=== PATIENT | female | born 1975 | race Hispanic/Latino ===

== ENCOUNTER → 2019-07-15 | Day surgery (SDC) | payer OTHER ==
[2019-07-12 13:24] LABS: BASOPHILS % 0.4 % (0.0-1.0); EOSINOPHILS % 0.4 % (0.0-6.0); HEMATOCRIT 45.8 % (34.2-44.1); HEMOGLOBIN 15.6 g/dL (12.0-16.0); LYMPHOCYTES # (AUTO) 1.9 (1.0-3.2); LYMPHOCYTES % 26.4 % (18.0-39.1); MEAN CORPUSCULAR HEMOGLOBIN 30.1 pg (28-32); MEAN CORPUSCULAR HGB CONC 34.1 g/dL (31-35); MEAN CORPUSCULAR VOLUME 88.4 fL (81-99); MONOCYTES # (AUTO) 0.4 (0.2-0.8); NEUTROPHILS # (AUTO) 4.9 (2.1-6.9); NEUTROPHILS % 67.5 % (38.7-80.0); PLATELET COUNT 301 x10e3/uL (140-360); RED BLOOD COUNT 5.18 x10e6/uL (3.6-5.1); RED CELL DISTRIBUTION WIDTH 11.8 % (11.7-14.4)
[2019-07-12 13:28] LABS: INR 0.95; PROTHROMBIN TIME 13.2 seconds (11.9-14.5)
[2019-07-12 13:29] LABS: PARTIAL THROMBOPLASTIN TIME 34.3 seconds (23.8-35.5)
[2019-07-12 13:34] LABS: ALANINE AMINOTRANSFERASE 16 IU/L (0-55); ALBUMIN 4.2 g/dL (3.5-5.0); ALBUMIN/GLOBULIN RATIO 1.1 (0.8-2.0); ALKALINE PHOSPHATASE 81 IU/L (40-150); ANION GAP 13.6 mmol/L (8-16); BLOOD UREA NITROGEN 10 mg/dL (7-26); BUN/CREATININE RATIO 15 (6-25); CALCIUM 10.1 mg/dL (8.4-10.2); CARBON DIOXIDE 26 mmol/L (22-29); CHLORIDE 101 mmol/L (98-107); CREATININE, SERUM 0.68 mg/dL (0.57-1.11); EST GLOMERULAR FILTRATION RATE > 60 ML/MIN (60-); GLUCOSE 90 mg/dL (74-118); POTASSIUM 3.6 mmol/L (3.5-5.1); SODIUM 137 mmol/L (136-145)
[~2019-07-15] MED LIST: ACETAMINOPHEN 1000 MG/100 ML 100 ML IV ONE; ACETAMINOPHEN 1000 MG/100 ML IV ONE; BACITRACIN 50,000 UNIT VIAL ONE; CEFAZOLIN SOD 1 GM/NS 50ML 50 ML IV ONE; DEXAMETHASONE SOD PHOS INJ 4 MG/ML VIAL ONE; FAMOTIDINE 20 MG/2 ML VIAL IV ONE; FENTANYL CITRATE/PF 100MCG/2 ML INJ ONE; GLYCOPYRROLATE INJ 1MG/ 5 ML SYR ONE; LIDOCAINE HCL 2% LOCAL INJ 5 ML SDV VIAL INJ ONE; METOCLOPRAMIDE HCL 10 MG/2ML VIAL ONE; MIDAZOLAM HCL 2 MG/2 ML VIAL ONE; NEOSTIGMINE 5 MG/5ML SYR ONE; ONDANSETRON HCL INJ 2MG/ML 2ML 2 MG/ML VIAL ONE; PROPOFOL IV EMULSION 10 MG/ML 20 ML VIAL ONE; ROCURONIUM BROMIDE 10 MG/ML 5ML VIAL ONE; SCOPOLAMINE 1.5 MG PATCH ONE; SEVOFLURANE INHAL SOLN 250 ML PEN BTL ONE; SODIUM CHLORIDE 0.9% 50ML 50 ML ONE
--- OUTSIDE RECORDS SUMMARY | 2019-07-15 06:17 | XMS REPORT ---
Author Author [facility] Address Unknown Phone Unavailable Care Team Providers Care Train Caller Name Role Phone Unavailable Unavailable Problems This patient has no known problems. Allergies, Adverse Reactions, Alerts This patient has no known allergies or adverse reactions. Medications This patient has no known medications. Results Test Description Test Time Test Comments Text Results Atomic Results Result Comments DIAG MAMM BILATERAL CAD DIGITAL W/AUGMENTATION 2019-04-07 15:12:49 - DIAG MAMM BILATERAL CAD DIGITAL W/AUGMENTATIONBILATERAL DIGITAL DIAGNOSTIC MAMMOGRAM WITH CAD WITH AUGMENTATION: 04/07/2019CLINICAL: Previous breast cancer. Current mammographic images were evaluated by either a [employer] M-Vu or a [employer] ImageChecker CAD (computer aided detection system). Comparison is made to exams dated 05/06/2017 mammogram, 09/21/2015 mammogram, and 08/27/2013 mammogram - [facility]. Bilateral mastectomy changes are noted.There are post operative findings in the right breast. Bilateral retropectoral silicone breast implants are appreciated. No suspicious mass, architectural distortion, malignant type calcification, or lymph node abnormality detected. Breast architecture is stable compared to prior exams.INCOMPLETE ASSESSMENT: ADDITIONAL IMAGING EVALUATION RECOMMENDEDNo mammographic evidence of malignancy.Same day bilateral whole breast complete ultrasound was also performed. Please see report.- BREAST ULTRASOUND BILATERALULTRASOUND OF BOTH BREASTS AND BOTH AXILLA: 04/07/2019Comparison is made to exams dated 05/06/2017 mammogram, 09/21/2015 mammogram, and 08/27/2013 mammogram - [facility]. Color flow and real-time ultrasound of both breasts and both axilla were performed. Tse scale images of the real-time examination were reviewed. No abnormalities were seen sonographically in either breast or axilla. IMPRESSION: BENIGN No sonog raphic evidence of malignancy. Resume annual screening mammography in one year. The above findings and recommendations were discussed with the patient at the time of the examination.Rober Crum MD hs/:04/07/2019 15:12:49 Entry: [facility] 04/08/2019 11:41:07Attending Technologist: Jihan DEL ANGEL, [facility]aging Technologist: Rody DEL ANGEL, [facility] sent: BIRADS 1-2 Combo FU Letter Mammogram BI-RADS: 0 Indeterminate Ultrasound BI-RADS: 2 Benign BREAST ULTRASOUND BILATERAL 2019-04-07 15:12:49 - DIAG MAMM BILATERAL CAD DIGITAL W/AUGMENTATIONBILATERAL DIGITAL DIAGNOSTIC MAMMOGRAM WITH CAD WITH AUGMENTATION: 04/07/2019CLINICAL: Previous breast cancer. Current mammographic images were evaluated by either a [employer] M-Vu or a [employer] CAD (computer aided detection system). Comparison is made to exams dated 05/06/2017 mammogram, 09/21/2015 mammogram, and [facility] Bilateral mastectomy changes are noted.There are post operative findings in the right breast. Bilateral retropectoral silicone breast implants are appreciated. No suspicious mass, architectural distortion, malignant type calcification, or lymph node abnormality detected. Breast architecture is stable compared to prior exams.INCOMPLETE ASSESSMENT: ADDITIONAL IMAGING EVALUATION RECOMMENDEDNo mammographic evidence of malignancy.Same day bilateral whole breast complete ultrasound was also performed. Please see report.- BREAST ULTRASOUND BILATERALULTRASOUND OF BOTH BREASTS AND BOTH AXILLA: 04/07/2019Comparison is made to exams dated 05/06/2017 mammogram, 09/21/2015 mammogram, and 08/27/2013 [facility]. Color flow and real-time ultrasound of both breasts and both axilla were performed. Tse scale images of the real-time examination were reviewed. No abnormalities were seen sonographically in either breast or axilla. IMPRESSION: BENIGN No sonog raphic evidence of malignancy. Resume annual screening mammography in one year. The above findings and recommendations were discussed with the patient at the time of the examination.Rober Crum MD hs/:04/07/2019 15:12:49 Entry: [facility] 04/08/2019 11:41:07Attending Technologist: Jihan DEL ANGEL, [facility] Technologist: Rody DEL ANGEL, [facility] sent: BIRADS 1-2 Combo FU Letter Mammogram BI-RADS: 0 Indeterminate Ultrasound BI-RADS: 2 Benign
[2019-07-15 11:55] VITALS: BP 119/72
--- NOTE | 2019-07-26 05:02 | Operative Report ---
DATE OF PROCEDURE: 07/15/2019 SURGEON: Bárbara Rosa MD PREOPERATIVE DIAGNOSES: 1. History of right breast cancer. 2. Acquired absence of bilateral breasts. 3. Old silicone gel breast implants. POSTOPERATIVE DIAGNOSES: 1. History of right breast cancer. 2. Acquired absence of bilateral breasts. 3. Old silicone gel breast implants. PROCEDURES PERFORMED: 1. Removal of bilateral old intact silicone gel breast implants, submuscular. 2. Bilateral breast capsulotomies. 3. Revision of bilateral breast reconstruction. 4. Placement of bilateral cohesive silicone gel breast implants, Ultra High Profile 510 mL Sientra in reconstruction. SN number on the left [id number] and SN number on the right [id number]. Both were Smooth Round Xtra High Profile Sientra implants. ANESTHESIA: General endotracheal. INDICATIONS FOR SURGERY: This is a 44-year-old female, who approximately 10 years ago underwent bilateral mastectomies and reconstruction with silicone gel breast implants. The patient is currently presenting for removal of bilateral old intact silicone gel breast implants, bilateral breast capsulotomies, revision of bilateral breast reconstruction and placement of bilateral new cohesive silicone gel breast implants and reconstruction. Risks, alternatives, and possible complications of the above procedure were explained to the patient. These include, but are not limited to bleeding, infection, scarring, skin flap necrosis, capsular contracture, breast asymmetry, exposure of failure of cohesive silicone gel breast implants, wound dehiscence, unsatisfactory aesthetic result, and possible need for further surgery. The patient had an opportunity to ask questions and have her questions answered and agreed to proceed with the proposed procedure. PROCEDURE IN DETAIL: The patient was marked in the preoperative holding area. She was then taken to the operating room and placed supine on the operating table. After adequate general anesthesia, the patient's bilateral breasts were prepped and draped in the usual surgical fashion. An incision was made along the previous mastectomy incision with #15 blade. Tissue was dissected down to breast capsule with the help of the Bovie. The breast pocket was entered and the old silicone gel breast implants were removed. They were high profile 400 mL implants. The breast pockets were then irrigated with normal saline with antibiotic solution. Extensive medial and superior capsulotomy as well as lateral and inferior capsulotomies were performed with the help of the Bovemanuel, [place], and Alpesh retractor. The capsulotomies were performed on both sides. Both pockets were irrigated with normal saline with antibiotic solution and checked for hemostasis. They were also checked for symmetry. Revision of bilateral breast reconstruction was then performed by excising the previous scar tissue along the mastectomy incision and releasing the scar contracture along the inferior portion of lower lateral breasts on both sides. After their revision of the bilateral breast reconstruction, the new cohesive silicone gel implants were placed in each pocket. They were Sientra Ultra High Profile 510 mL implants. After placing the implants in the breast pockets, the patient was placed in the sitting position and the 2 breasts were checked for symmetry. They appeared to be symmetric. The breast pocket was closed with 2 layers of interrupted 3-0 Vicryl suture and a running subcuticular 3-0 Monoderm Quill suture. At the end of the case, both breasts appeared to be symmetric. All skin flaps were viable. Both the incisions were covered with Xeroform, ABD pads, and the patient was wrapped with a large 6-inch Rashel wrap. She tolerated the procedure well. There were no immediate complications. The needle and instrument count was correct at the end of the case and she was transferred, extubated to the recovery room. MD TAIWO Ventura/MODL /[id number]
== END | disposition home or self-care (01) ==
LOC: OR 06:14
PROVIDERS: ATTEND Plastic Surgery
DX: Z90.13 Acquired absence of bilateral breasts and nipples (principal); Z85.3 Personal history of malignant neoplasm of breast; Z01.812 Encounter for preprocedural laboratory examination; K21.9 Gastro-esophageal reflux disease without esophagitis
CPT/HCPCS: 19328; 19340; 19370; 36415; 80053; 84702; 85025; 85610; 85730; A4467; J0131; J0690; J1100; J2001; J2250; J2405; J2704; J2765; J3010; J3490